=== PATIENT | female | born 1950 | race American Indian/Alaskan Native ===

== ENCOUNTER 2016-08-16 09:35 | Outpatient (CLI) | payer MEDICARE ==
--- NOTE | 2016-08-16 11:12 | Fluoroscopy Report ---
AIR CONTRAST BARIUM ENEMA HISTORY: Screening for colon cancer, incomplete colonoscopy. FINDINGS: No relevant comparison. Mail Delivery Supervisor film of the abdomen demonstrates multiple large calcified uterine fibroids in the pelvis. The bowel gas pattern is unremarkable. Multiple overhead radiographs and 24 fluoroscopic images were captured for this exam. The colon is normal caliber and mucosal pattern throughout. There is no evidence for obstruction, mass, polyposis or inflammatory changes. There are numerous diverticula throughout the length of the colon. The cecum is unremarkable. The terminal ileum is faintly visualized and unremarkable. The appendix is not confidently identified. IMPRESSION: Moderate diverticulosis of the colon. No suspicious mass, mucosal defect or abnormal dilatation.
== END 2016-08-16 09:36 | disposition home or self-care (01) ==
LOC: FLUORO 09:35
PROVIDERS: ATTEND Internal Medicine Gastroenterology
DX: Z12.11 Encounter for screening for malignant neoplasm of colon (principal); D25.9 Leiomyoma of uterus, unspecified; K57.30 Diverticulosis of large intestine without perforation or abscess without bleeding
CPT/HCPCS: 74280

== ENCOUNTER 2017-10-13 14:10 | Outpatient (CLI) | payer MEDICARE ==
--- NOTE | 2017-10-13 15:14 | Ultrasound Report ---
Right breast ultrasound: The patient presents for an ultrasound-guided biopsy based on outside images raising question of a significant hypodensity in the 3:00 location of the right breast 3 cm from the nipple. Historical significance is prior breast trauma with a demonstrated large partially calcified cyst in the superior breast at 12:00. This is clearly visible measuring approximately 2 x 3 cm and unchanged from outside images. Medial to the superior mass there is retraction of the skin related to the patient's prior trauma and is a chronic finding. This deformity does make imaging of this area somewhat difficult but we could not recreate the same findings of hypodensity is seen on the outside images. Following discussions with Dr. Martell who apparently had the same difficulty trying to recreate this image in her office it was decided to cancel the current biopsy request. These findings and recommendations have been discussed with the patient. Impression: No suspicious findings. Superior right breast cyst. Recommendation: Followup based on your protocol. BI-RADS CATEGORY: 2 = Benign ACR BI-RADS MAMMOGRAPHIC CODES: 0 = Needs additional imaging evaluation; 1 = Negative; 2 = Benign; 3 = Probably benign; 4 = Suspicious; 5 = Malignant; 6 = Known biopsy-proven malignancy COMMENT: 1. Dense breast tissue, i.e., adenosis, fibrocystic changes, etc., may obscure an underlying neoplasm. 2. Approximately 10% of cancers are not detected with mammography. 3. A negative mammography report should not delay biopsy if a clinically suspicious mass is present.
== END 2017-10-13 14:11 | disposition home or self-care (01) ==
LOC: SPVWC 14:10
PROVIDERS: ATTEND Surgery
DX: N60.01 Solitary cyst of right breast (principal)

== ENCOUNTER 2020-08-26 10:13 | Outpatient (CLI) | payer MEDICARE ==
--- NOTE | 2020-08-26 12:15 | Mammography Report ---
BILATERAL DIGITAL SCREENING MAMMOGRAM WITH CAD WITH TOMOSYNTHESIS HISTORY: Screening mammogram. Personal history of right breast surgery/trauma in the left breast biop sy. TECHNIQUE: Routine digital mammographic imaging performed. This examination was interpreted with alannah herrera benefit of Computer-aided Detection analysis. Tomosynthesis images were processed and reviewed. COMPARISON: 08/26/2020, 08/22/2019, 04/20/2018. FINDINGS: Breast Density: heterogeneously dense breast parenchymal pattern which somewhat lessens the sensitivi ty of the evaluation. Digital CC and MLO views demonstrate no mammographic evidence of malignancy. Stable postprocedural c hange in the right central breast with large area of benign-appearing fat necrosis centrally. Coarse loosely clustered calcifications throughout the left breast show no significant change. IMPRESSION: No mammographic evidence of malignancy. If the clinical examination remains stable, recommend bilate ral mammogram in approximately one year. BIRADS 2: Benign Finding(s). FURTHER INFORMATION: According to the [employer], yearly mammograms are recommend ed starting at age 40 and continuing as long as a woman is in good health. Clinical Breast Exams shou ld be part of a periodic health exam-about every 3 years for women in their 20s and 30s and every yea r for women 40 and over. Breast self exam is an option for women starting in their 20s. Any breast ch baldev noted on a breast self exam should be reported promptly to the patient's healthcare provider. Br east MRI is recommended for women with an approximately 20-25% or greater lifetime risk of breast can cer, including women with a strong family history of breast or ovarian cancer and women who have been treated for Hodgkin's disease. A negative Mammography report should not discourage follow up or biopsy of a clinically significant f inding and/or abnormality. Dense breast tissue may obscure small neoplasms. The patient will be entered into a reminder system with a target due date for the next screening mamm ogram. Signer Name: Shankar Cloud MD Signed: 08/26/2020 12:10 PM Workstation Name: [id number]
== END 2020-08-26 10:14 | disposition home or self-care (01) ==
LOC: SPVWC 10:13
PROVIDERS: ATTEND Surgery
DX: Z12.31 Encounter for screening mammogram for malignant neoplasm of breast (principal); N64.89 Other specified disorders of breast
CPT/HCPCS: 77063; 77067